=== PATIENT | male | born 1965 | race Two or more races ===

== ENCOUNTER 2021-11-16 13:16 | Inpatient (IN) | payer BC, OTHER ==
[~2021-11-16] VITALS: Ht 162.6 cm; Wt 90.0 kg
[2021-11-16] MEDS ORDERED: KETOROLAC TROMETH 30 MG/ML 1ML VIAL IV ONE (13:45)
[2021-11-16] MEDS ORDERED: ONDANSETRON HCL 4 MG/2 ML VIAL IV ONE (13:45)
[2021-11-16] MEDS ORDERED: SODIUM CHLORIDE 0.9% 1,000 ML IVB ONE (13:45)
[2021-11-16 14:29] LABS: Urine Bacteria FEW /hpf (None Seen); Urine Blood Negative /uL (Negative); Urine Mucus FEW (None Seen); Urine Specific Gravity 1.032 (1.001-1.035); Urine Sperm PRESENT /hpf (None Seen); Urine WBC 39 /hpf (0 - 3)
[2021-11-16 14:30] LABS: Basophils # (auto) 0 10 ^3/uL (0-0.2); Basophils % (auto) 0.3 % (0.0-2.0); Eosinophils # (auto) 0 10 ^3/uL (0-0.8); Eosinophils % (auto) 0.5 % (0.0-7.0); Hematocrit 46.7 % (41.0-53.0); Lymphocytes # (auto) 1.3 10 ^3/uL (0.4-5.4); Lymphocytes % (auto) 18.6 % (10.0-50.0); Mean Corpuscular Hemoglobin 30.6 pg (28.0-32.0); Mean Corpuscular Hgb Conc. 34.4 g/dL (32.0-36.0); Mean Corpuscular Volume 89.1 fL (80.0-100.0); Monocytes # (auto) 0.5 10 ^3/uL (0-1.3); Monocytes % (auto) 7.7 % (0.0-12.0); Neutrophils # (auto) 5.2 10 ^3/uL (1.6-8.6); Neutrophils % (auto) 72.9 % (37.0-80.0); Red Blood Cells 5.24 10^6/uL (4.5-5.90); Red Cell Distribution Width 13.1 % (11.8-14.3); White Blood Cell 7.1 10^3/uL (4.4-10.8)
[2021-11-16 14:46] LABS: Calcium 9.2 mg/dL (8.5-10.1); Potassium 3.5 mmol/L (3.5-5.1)
[2021-11-16 14:49] LABS: Bilirubin, Total 0.6 mg/dL (0.2-1.0); Total Protein 8.8 g/dL (6.4-8.2)
[2021-11-16] MEDS ORDERED: MORPHINE SULFATE INJ 2 MG/ml SYRG IV PRN (21:00)
[2021-11-16] MEDS ORDERED: PANTOPRAZOLE 40 MG/10 ML VIAL INJ IV ONE (21:00)
[2021-11-16] MEDS ORDERED: ONDANSETRON HCL 4 MG/2 ML VIAL IV PRN (21:00)
[2021-11-16] MEDS: SODIUM CHLORIDE 0.9% 1,000 ML IV SCH (21:26)
[2021-11-17 00:11] VITALS: BP 112/58
[2021-11-17 04:53] LABS: Basophils # (auto) 0 10 ^3/uL (0-0.2); Basophils % (auto) 0.2 % (0.0-2.0); Eosinophils # (auto) 0.1 10 ^3/uL (0-0.8); Eosinophils % (auto) 1.6 % (0.0-7.0); Hematocrit 41.4 % (41.0-53.0); Hemoglobin 14.3 g/dL (13.5-17.5); Lymphocytes # (auto) 1.2 10 ^3/uL (0.4-5.4); Lymphocytes % (auto) 18.1 % (10.0-50.0); Mean Corpuscular Hemoglobin 30.9 pg (28.0-32.0); Mean Corpuscular Hgb Conc. 34.7 g/dL (32.0-36.0); Mean Corpuscular Volume 89.3 fL (80.0-100.0); Monocytes # (auto) 0.6 10 ^3/uL (0-1.3); Monocytes % (auto) 9.2 % (0.0-12.0); Neutrophils # (auto) 4.8 10 ^3/uL (1.6-8.6); Neutrophils % (auto) 70.9 % (37.0-80.0); Nucleated Red Blood Cells % 0.1 %; Red Blood Cells 4.63 10^6/uL (4.5-5.90); Red Cell Distribution Width 12.9 % (11.8-14.3); White Blood Cell 6.8 10^3/uL (4.4-10.8)
[2021-11-17 05:00] VITALS: BP 112/69
[2021-11-17 05:13] LABS: Potassium 3.5 mmol/L (3.5-5.1)
[2021-11-17 05:23] LABS: Albumin 3.2 g/dL (3.4-5.0); Bilirubin, Total 0.4 mg/dL (0.2-1.0); Calcium 8.2 mg/dL (8.5-10.1); Total Protein 7.4 g/dL (6.4-8.2)
[2021-11-17 09:00] VITALS: BP 107/66
[2021-11-17] MEDS: SODIUM CHLORIDE 0.9% 1,000 ML IV SCH ×2 (09:30→21:30)
[2021-11-17] MEDS: PANTOPRAZOLE 40 MG/10 ML VIAL INJ IV SCH (09:31)
[2021-11-17 13:00] VITALS: BP 104/64
[2021-11-17 17:00] VITALS: BP 113/68
[2021-11-17] MEDS: metroNIDAZOLE 500MG/100ML 100 ML IV SCH (21:30)
[2021-11-17 22:04] VITALS: BP 116/71
[2021-11-18 05:00] VITALS: BP 112/65
[2021-11-18] MEDS: metroNIDAZOLE 500MG/100ML 100 ML IV SCH ×3 (06:18→21:14)
[2021-11-18 09:18] VITALS: BP 124/65
[2021-11-18] MEDS: PANTOPRAZOLE 40 MG/10 ML VIAL INJ IV SCH (09:35)
[2021-11-18] MEDS: levoFLOXacin 500MG 100 ML IV SCH (09:36)
[2021-11-18] MEDS: SODIUM CHLORIDE 0.9% 1,000 ML IV SCH ×2 (10:30→21:14)
[2021-11-18 13:00] VITALS: BP 110/67
[2021-11-18 16:18] VITALS: BP 124/75
[2021-11-18 22:00] VITALS: BP 124/71
[2021-11-19 05:00] VITALS: BP 112/68
[2021-11-19] MEDS: metroNIDAZOLE 500MG/100ML 100 ML IV SCH (05:31)
[2021-11-19 09:01] VITALS: BP 144/84
[2021-11-19] MEDS ORDERED: METR500T PO (09:03)
[2021-11-19] MEDS ORDERED: LEVO500T31 PO (09:03)
[2021-11-19] MEDS: PANTOPRAZOLE 40 MG/10 ML VIAL INJ IV SCH (09:46)
[2021-11-19] MEDS: levoFLOXacin 500MG 100 ML IV SCH (09:46)
[2021-11-19] MEDS: SODIUM CHLORIDE 0.9% 1,000 ML IV SCH (11:30)
[2021-11-19 13:04] VITALS: BP 124/71
[2021-11-19 13:15] VITALS: BP 124/71
== END 2021-11-19 13:53 | disposition home or self-care (01) | DRG 445 ==
LOC: ER 13:16 → OVERFLOW 22:22 → CENTRAL 23:32
PROVIDERS: ADMIT Nurse Practitioner; ATTEND Family Medicine
DX: K80.20 Calculus of gallbladder without cholecystitis without obstruction (principal); K56.7 Ileus, unspecified; K52.9 Noninfective gastroenteritis and colitis, unspecified; N30.90 Cystitis, unspecified without hematuria; Z20.822 Contact with and (suspected) exposure to COVID-19; E66.9 Obesity, unspecified; F10.20 Alcohol dependence, uncomplicated; K76.0 Fatty (change of) liver, not elsewhere classified; Z87.442 Personal history of urinary calculi; Z68.33 Body mass index [BMI] 33.0-33.9, adult; Z79.899 Other long term (current) drug therapy
CPT/HCPCS: 36415; 74176; 76705; 78226; 80053; 81001; 82150; 83690; 85025; 87086; 96361; 96374; 96375; C9113; G0378; J1885; J1956; J2405; J3490